=== PATIENT | male | born 1960 | race Caucasian/White ===

== ENCOUNTER 2016-05-20 15:18 | Emergency (ER) | payer OTHER ==
[~2016-05-20] VITALS: Ht 172.7 cm; Wt 71.8 kg
[~2016-05-20 15:18] MED LIST: FENTANYL; HYDRELX3; OXYCODONE; SOMA; TRAMADOL
[2016-05-20 16:07] LABS: Basophils # (auto) 0.1 uL; Basophils % (auto) 1.1 % (0.0-2.0); DEFINITIVE VIEW TRANSMISSION; Eosinophils # (auto) 0.3 uL; Eosinophils % (auto) 3.9 % (0.0-7.0); Hemoglobin 13.7 g/dL (13.5-17.5); Lymphocytes # (auto) 2.1 uL; Lymphocytes % (auto) 26.4 % (10.0-50.0); Mean Corpuscular Hemoglobin 32.7 pg (28.0-32.0); Mean Corpuscular Hgb Conc. 31.8 g/dL (32.0-36.0); Mean Corpuscular Volume 102.8 fL (80.0-100.0); Mean Platelet Volume 8.3 fL (7.4-10.4); Monocytes # (auto) 0.6 uL; Neutrophils % (auto) 61.6 % (37.0-80.0); Platelet Count (auto) 441 10^3/uL (140-450); Red Cell Distribution Width 14.4 % (11.6-16.0); White Blood Cell 8.1 10^3/uL (4.4-10.8)
[2016-05-20 16:37] LABS: Albumin 3.7 g/dL (3.4-5.0); BUN/Creatinine Ratio 8.3; Bilirubin, Total 0.4 mg/dL (0.2-1.0); Calcium 9.2 mg/dL (8.5-10.1); Potassium 3.9 mmol/L (3.5-5.1); Total Protein 7.2 g/dL (6.4-8.2)
[2016-05-20 16:57] VITALS: BP 126/82
[2016-05-20 17:52] LABS: INR 0.98 (0.9-1.15); Partial Thromboplastin Time 25.8 sec (22.64-33.71); Prothrombin Time 10.1 sec (9.37-12.3)
== END 2016-05-20 18:24 | disposition left against medical advice (07) ==
LOC: ER 15:34
DX: R51 Headache (principal); R20.0 Anesthesia of skin; H53.8 Other visual disturbances; Z53.21 Procedure and treatment not carried out due to patient leaving prior to being seen by health care provider
CPT/HCPCS: 36415; 70450; 80053; 82962; 83735; 84484; 85025; 85610; 85730; 93005; 94761

== ENCOUNTER 2016-07-03 21:45 | Emergency (ER) | payer OTHER ==
[~2016-07-03] VITALS: Ht 172.7 cm; Wt 68.0 kg
[2016-07-03] MEDS ORDERED: SODIUM CHLORIDE 0.9% 1,000 ML IV ONE (22:15)
[2016-07-03 22:38] LABS: DEFINITIVE VIEW TRANSMISSION; Hematocrit 34.1 % (41.0-53.0); Hemoglobin 11.2 g/dL (13.5-17.5); Mean Corpuscular Hemoglobin 33.3 pg (28.0-32.0); Mean Corpuscular Hgb Conc. 32.9 g/dL (32.0-36.0); Mean Corpuscular Volume 101.4 fL (80.0-100.0); Mean Platelet Volume 7.8 fL (7.4-10.4); Platelet Count (auto) 330 10^3/uL (140-450); Red Cell Distribution Width 15.3 % (11.6-16.0)
[2016-07-03 22:48] LABS: Blood Urea Nitrogen 13 mg/dL (7-18); Calcium 7.9 mg/dL (8.5-10.1); Chloride 109 mmol/L (98-107); Potassium 3.8 mmol/L (3.5-5.1); Sodium 139 mmol/L (136-145)
[2016-07-03 22:51] LABS: Acetaminophen 18.7 ug/mL (10-30); Salicylate 4.9 mg/dL (2.8-20.0)
[2016-07-03 22:52] LABS: Albumin 2.7 g/dL (3.4-5.0); Anion Gap 9 (5-15); Aspartate Aminotransferase 28 U/L (15-37); BUN/Creatinine Ratio 14.1; Carbon Dioxide 21 mmol/L (21-32); GFR African American 109 mL/min; GFR Non-African American 90 mL/min; Glucose 98 mg/dL (74-106); Magnesium 2.2 mg/dL (1.6-2.6)
[2016-07-03 22:56] LABS: Metamyelocytes % 0; Myelocytes % 0; Promyelocytes % 0; Reactive Lymphocytes 0
[2016-07-03 22:57] LABS: Alkaline Phosphatase 89 U/L (45-117); Bilirubin, Total 0.2 mg/dL (0.2-1.0); Total Protein 6.4 g/dL (6.4-8.2)
[2016-07-03 23:01] LABS: Platelet Estimate Adequate
[2016-07-03 23:07] LABS: Urine RBC None Seen /hpf (0 - 3)
[2016-07-03 23:30] LABS: Urine Bilirubin Negative (Negative); Urine Blood Negative /uL (Negative); Urine Color Yellow (Yellow); Urine Glucose Normal (Normal); Urine Ketone Negative (Negative); Urine Nitrite Negative (Negative); Urine Squamous Epithelial Cell FEW /hpf (<5); Urine Urobilinogen Normal (Negative); Urine pH 5.5 (5.0-8.0)
[2016-07-04 02:50] VITALS: BP 98/59
== END 2016-07-04 06:18 | disposition home or self-care (01) ==
LOC: EDBD 21:45 → ER 21:49
DX: T40.601A Poisoning by unspecified narcotics, accidental (unintentional), initial encounter (principal); F17.210 Nicotine dependence, cigarettes, uncomplicated; F10.120 Alcohol abuse with intoxication, uncomplicated; Y92.89 Other specified places as the place of occurrence of the external cause
CPT/HCPCS: 36415; 51702; 70450; 71010; 80053; 80320; 80329; 81001; 83735; 84484; 85007; 85027; 93005; 96360; 99285; G0434

== ENCOUNTER 2016-10-03 12:11 | Emergency (ER) | payer OTHER ==
[~2016-10-03] VITALS: Ht 172.7 cm; Wt 68.0 kg
[2016-10-03 16:35] VITALS: BP 125/105
== END 2016-10-03 16:58 | disposition home or self-care (01) ==
LOC: ER 12:11
DX: L02.01 Cutaneous abscess of face (principal); Z79.899 Other long term (current) drug therapy; B19.20 Unspecified viral hepatitis C without hepatic coma; E07.9 Disorder of thyroid, unspecified; F17.210 Nicotine dependence, cigarettes, uncomplicated; F11.10 Opioid abuse, uncomplicated

== ENCOUNTER 2016-11-22 12:55 | Inpatient (IN) | payer OTHER ==
[~2016-11-22] VITALS: Ht 172.7 cm; Wt 72.9 kg
[2016-11-22 13:45] LABS: Basophils # (auto) 0.1 uL; Basophils % (auto) 0.7 % (0.0-2.0); CONDITION Y; Eosinophils # (auto) 0.4 uL; Eosinophils % (auto) 4.3 % (0.0-7.0); Hematocrit 39.5 % (41.0-53.0); Hemoglobin 12.9 g/dL (13.5-17.5); Lymphocytes # (auto) 1.1 uL; Lymphocytes % (auto) 12.1 % (10.0-50.0); Mean Corpuscular Hgb Conc. 32.7 g/dL (32.0-36.0); Mean Corpuscular Volume 97.9 fL (80.0-100.0); Monocytes # (auto) 0.6 uL; Monocytes % (auto) 6.3 % (0.0-12.0); Neutrophils # (auto) 7.1 uL; Neutrophils % (auto) 76.6 % (37.0-80.0); Platelet Count (auto) 355 10^3/uL (140-450); Red Cell Distribution Width 17.1 % (11.6-16.0); White Blood Cell 9.3 10^3/uL (4.4-10.8)
[2016-11-22 14:24] LABS: Albumin 3.3 g/dL (3.4-5.0); BUN/Creatinine Ratio 9.2; Bilirubin, Total 0.3 mg/dL (0.2-1.0); Calcium 9.1 mg/dL (8.5-10.1); Potassium 4.1 mmol/L (3.5-5.1); Total Protein 6.7 g/dL (6.4-8.2)
[2016-11-22] MEDS ORDERED: SODIUM CHLORIDE 0.9% 1,000 ML IVB ONE (16:35)
[2016-11-22] MEDS ORDERED: ONDANSETRON HCL 4 MG/2 ML VIAL IV ONE (16:45)
[2016-11-22 17:19] LABS: Amylase 29 U/L (25-115); Magnesium 2.1 mg/dL (1.6-2.6)
[2016-11-22 17:31] LABS: INR 0.95 (0.9-1.15); Partial Thromboplastin Time 25.4 sec (22.64-33.71); Prothrombin Time 10.3 sec (9.37-12.3)
[2016-11-22] MEDS ORDERED: LORazepam 2MG/ML-1ML VIAL IV PRN (18:15)
[2016-11-22] MEDS ORDERED: cefTRIAXone 1GM/50ML D5W 50 ML IV ONE (18:15)
[2016-11-22] MEDS ORDERED: NITROGLYCERIN 0.4 MG SL TAB SL PRN (18:15)
[2016-11-22] MEDS ORDERED: MORPHINE SULF INJ 2 MG/ML SYRINGE 1ML IV PRN (18:15)
[2016-11-22] MEDS ORDERED: MORPHINE SULFATE 4 MG/ML SYRG IV PRN (18:15)
[2016-11-22] MEDS ORDERED: ALBUTEROL SULF 2.5 MG/0.5ML(0.5%) NEB SOLN NEB PRN (18:15)
[2016-11-22] MEDS ORDERED: DEXTROSE (50%) 50ML SYRG IV PRN (18:15)
[2016-11-22] MEDS ORDERED: MORPHINE SULF INJ 2 MG/ML SYRINGE 1ML IV ONE ×2 (18:15)
[2016-11-22] MEDS ORDERED: PROMETHAZINE HCL 25 MG/ML 1ML IV PRN (18:15)
[2016-11-22] MEDS ORDERED: QUET1TAB88 (18:33)
[2016-11-22] MEDS ORDERED: BENZ1TAB2 (18:33)
[2016-11-22] MEDS ORDERED: ALBU18 (18:33)
[2016-11-22] MEDS ORDERED: BUPR300T28 (18:33)
[2016-11-22] MEDS ORDERED: DICL50TA2 (18:33)
[2016-11-22] MEDS ORDERED: ASPI81TA10 (18:33)
[2016-11-22] MEDS ORDERED: LEVO200T45 (18:33)
[2016-11-22] MEDS ORDERED: OLAN20TA17 (18:33)
[2016-11-22] MEDS ORDERED: LITH300C3 (18:33)
[2016-11-22] MEDS: FAMOTIDINE (10MG/ML) 2ML VL IV SCH (19:03)
[2016-11-22] MEDS: SODIUM CHLORIDE 0.9% 1,000 ML IV SCH (19:03)
[2016-11-22 20:30] VITALS: BP 120/76
[2016-11-22] MEDS: metroNIDAZOLE 500MG/100ML 100 ML IV SCH (21:17)
[2016-11-22] MEDS: MORPHINE SULF INJ 2 MG/ML SYRINGE 1ML IV PRN (21:17)
[2016-11-22 22:17] VITALS: BP 120/76
[2016-11-22 22:18] VITALS: BP 126/85
[2016-11-23] MEDS ORDERED: ALBUTEROL SULF 2.5 MG/0.5ML(0.5%) NEB SOLN NEB SCH
[2016-11-23] MEDS ORDERED: IPRATROPIUM BROM 0.5 MG/2.5ML INH SOL NEB SCH
[2016-11-23] MEDS: ACCU-CHEK COMFORT CURVE STRIP VI SCH ×2 (00:18→05:10)
[2016-11-23] MEDS: MORPHINE SULF INJ 2 MG/ML SYRINGE 1ML IV PRN ×2 (01:43→06:04)
[2016-11-23] MEDS: SODIUM CHLORIDE 0.9% 1,000 ML IV SCH (04:08)
[2016-11-23] MEDS: metroNIDAZOLE 500MG/100ML 100 ML IV SCH (05:09)
[2016-11-23] MEDS: InsuLIN REG 1unit/0.01ml Soln (100units/ml) SC SCH ×2 (05:10)
[2016-11-23 05:22] VITALS: BP 131/85
[2016-11-23] MEDS ORDERED: TRAZ100T2 PO (05:24)
[2016-11-23] MEDS: FAMOTIDINE (10MG/ML) 2ML VL IV SCH (06:04)
[2016-11-23 06:56] LABS: Basophils # (auto) 0.1 uL; Basophils % (auto) 0.8 % (0.0-2.0); CONDITION Y; Eosinophils # (auto) 0.6 uL; Eosinophils % (auto) 7.8 % (0.0-7.0); Hematocrit 32.8 % (41.0-53.0); Hemoglobin 10.9 g/dL (13.5-17.5); Lymphocytes # (auto) 2.1 uL; Lymphocytes % (auto) 27.9 % (10.0-50.0); Mean Corpuscular Hemoglobin 32.1 pg (28.0-32.0); Mean Corpuscular Hgb Conc. 33.3 g/dL (32.0-36.0); Mean Corpuscular Volume 96.4 fL (80.0-100.0); Mean Platelet Volume 8.9 fL (7.4-10.4); Monocytes # (auto) 0.6 uL; Monocytes % (auto) 7.8 % (0.0-12.0); Neutrophils # (auto) 4.1 uL; Neutrophils % (auto) 55.7 % (37.0-80.0); Platelet Count (auto) 279 10^3/uL (140-450); Red Cell Distribution Width 16.4 % (11.6-16.0); White Blood Cell 7.4 10^3/uL (4.4-10.8)
[2016-11-23 07:07] LABS: Albumin 2.8 g/dL (3.4-5.0); BUN/Creatinine Ratio 11.9; Calcium 8.4 mg/dL (8.5-10.1); Potassium 4.2 mmol/L (3.5-5.1)
[2016-11-23 07:10] LABS: Bilirubin, Total 0.3 mg/dL (0.2-1.0); Total Protein 5.7 g/dL (6.4-8.2)
[2016-11-23 07:37] VITALS: BP 141/87
[2016-11-23] MEDS ORDERED: cefTRIAXone 1GM/50ML D5W 50 ML IV SCH (09:00)
== END 2016-11-23 07:45 | disposition left against medical advice (07) | DRG 389 ==
LOC: ER 12:55 → EDUNIT# 12:55 → TELE 12:56 → TELE-WESTW 20:30
PROVIDERS: ADMIT Internal Medicine; ATTEND Internal Medicine
DX: K56.60 Unspecified intestinal obstruction (principal); J44.1 Chronic obstructive pulmonary disease with (acute) exacerbation; E03.9 Hypothyroidism, unspecified; F20.9 Schizophrenia, unspecified; F17.210 Nicotine dependence, cigarettes, uncomplicated; F31.9 Bipolar disorder, unspecified; K76.9 Liver disease, unspecified; F41.9 Anxiety disorder, unspecified; Z82.49 Family history of ischemic heart disease and other diseases of the circulatory system; Z83.3 Family history of diabetes mellitus; Z79.82 Long term (current) use of aspirin
CPT/HCPCS: 36415; 71010; 74176; 80053; 82150; 82378; 82962; 83036; 83690; 83735; 84484; 85025; 85610; 85652; 85730; 93005; 94640; 94761; 96374; 96375; J0696; J2405; J3490

== ENCOUNTER 2017-02-11 15:50 | Emergency (ER) | payer OTHER ==
[~2017-02-11] VITALS: Ht 172.7 cm; Wt 71.7 kg
[~2017-02-11 15:50] MED LIST changes: +ALBU18; +ASPI81TA10; +BENZ1TAB2; +BUPR300T28; +DICL50TA2; -FENTANYL; -HYDRELX3; +LEVO200T45; +LITH300C3; +OLAN20TA17; -OXYCODONE; +QUET1TAB88; -SOMA; -TRAMADOL; +TRAZ100T2 PO
[2017-02-11 16:08] VITALS: BP 151/95
[2017-02-11 16:55] LABS: Basophils # (auto) 0.1 uL; Basophils % (auto) 1.7 % (0.0-2.0); Eosinophils # (auto) 0.4 uL; Eosinophils % (auto) 5.9 % (0.0-7.0); Hematocrit 34.4 % (41.0-53.0); Hemoglobin 11.2 g/dL (13.5-17.5); Lymphocytes # (auto) 1.5 uL; Mean Corpuscular Hemoglobin 31.2 pg (28.0-32.0); Mean Corpuscular Hgb Conc. 32.6 g/dL (32.0-36.0); Mean Corpuscular Volume 95.5 fL (80.0-100.0); Mean Platelet Volume 7.6 fL (6.9-10.8); Monocytes # (auto) 0.8 uL; Monocytes % (auto) 12.1 % (0.0-12.0); Neutrophils # (auto) 3.8 uL; Neutrophils % (auto) 57.3 % (37.0-80.0); Platelet Count (auto) 318 10^3/uL (140-450); Red Cell Distribution Width 16.7 % (11.8-14.3); White Blood Cell 6.7 10^3/uL (4.4-10.8)
[2017-02-11 17:17] LABS: Albumin 3.4 g/dL (3.4-5.0); Alkaline Phosphatase 91 U/L (45-117); Anion Gap 9 (5-15); Aspartate Aminotransferase 49 U/L (15-37); BUN/Creatinine Ratio 8.9; Bilirubin, Total 0.3 mg/dL (0.2-1.0); Blood Urea Nitrogen 8 mg/dL (7-18); Calcium 8.8 mg/dL (8.5-10.1); Carbon Dioxide 25 mmol/L (21-32); Chloride 102 mmol/L (98-107); GFR African American 112 mL/min; GFR Non-African American 93 mL/min; Glucose 89 mg/dL (74-106); Magnesium 2.1 mg/dL (1.6-2.6); Potassium 3.8 mmol/L (3.5-5.1); Sodium 136 mmol/L (136-145); Total Protein 7.3 g/dL (6.4-8.2)
== END 2017-02-11 18:46 | disposition left against medical advice (07) ==
LOC: ER 15:58
DX: M54.5 Low back pain (principal); M79.601 Pain in right arm; Z53.21 Procedure and treatment not carried out due to patient leaving prior to being seen by health care provider
CPT/HCPCS: 36415; 80053; 83735; 84484; 85025; 93005

== ENCOUNTER 2017-02-14 19:30 | Emergency (ER) | payer OTHER ==
[~2017-02-14] VITALS: Ht 172.7 cm; Wt 71.7 kg
[2017-02-14 20:30] LABS: Basophils # (auto) 0.1 uL; Basophils % (auto) 1.5 % (0.0-2.0); Eosinophils # (auto) 0.3 uL; Eosinophils % (auto) 5.5 % (0.0-7.0); Hematocrit 33.9 % (41.0-53.0); Hemoglobin 11.1 g/dL (13.5-17.5); Lymphocytes # (auto) 1.6 uL; Lymphocytes % (auto) 30.5 % (10.0-50.0); Mean Corpuscular Hemoglobin 30.9 pg (28.0-32.0); Mean Corpuscular Hgb Conc. 32.6 g/dL (32.0-36.0); Mean Corpuscular Volume 94.7 fL (80.0-100.0); Mean Platelet Volume 7.4 fL (6.9-10.8); Monocytes # (auto) 0.7 uL; Monocytes % (auto) 13.5 % (0.0-12.0); Neutrophils # (auto) 2.5 uL; Nucleated Red Blood Cells % 0.1 %; Platelet Count (auto) 297 10^3/uL (140-450); Red Cell Distribution Width 16.9 % (11.8-14.3); White Blood Cell 5.2 10^3/uL (4.4-10.8)
[2017-02-14 20:35] LABS: Urine RBC None Seen /hpf (0 - 3)
[2017-02-14 20:42] LABS: Urine Bilirubin Negative (Negative); Urine Blood Negative /uL (Negative); Urine Color Yellow (Yellow); Urine Glucose Normal (Normal); Urine Ketone Negative (Negative); Urine Nitrite Negative (Negative); Urine Urobilinogen Normal (Negative); Urine pH 6.5 (5.0-8.0)
[2017-02-14 20:50] LABS: INR 0.97 (0.9-1.15); Prothrombin Time 10.6 sec (9.37-12.3)
[2017-02-14 20:52] LABS: Albumin 3.1 g/dL (3.4-5.0); Alkaline Phosphatase 86 U/L (45-117); Anion Gap 6 (5-15); Aspartate Aminotransferase 77 U/L (15-37); BUN/Creatinine Ratio 8.5; Bilirubin, Total 0.2 mg/dL (0.2-1.0); Blood Urea Nitrogen 7 mg/dL (7-18); Calcium 8.5 mg/dL (8.5-10.1); Carbon Dioxide 27 mmol/L (21-32); Chloride 103 mmol/L (98-107); GFR African American 125 mL/min; GFR Non-African American 103 mL/min; Glucose 87 mg/dL (74-106); Potassium 4.1 mmol/L (3.5-5.1); Sodium 136 mmol/L (136-145); Total Protein 7.3 g/dL (6.4-8.2)
[2017-02-15] MEDS ORDERED: cefTRIAXone W LIDOCAINE 1 GM IM IM ONE
[2017-02-15] MEDS ORDERED: cefTRIAXone SOD 1,000 MG VL ONE (00:34)
[2017-02-15] MEDS ORDERED: LIDOCAINE 1% HCL (LOCAL ANESTH.) INJ 20ML MDV ONE (00:34)
[2017-02-15] MEDS ORDERED: KETOROLAC TROMETH 60MG/2ML VIAL IM ONE (01:00)
[2017-02-15 01:45] VITALS: BP 149/88
== END 2017-02-15 01:52 | disposition home or self-care (01) ==
LOC: ER 19:30
DX: L03.113 Cellulitis of right upper limb (principal); F10.129 Alcohol abuse with intoxication, unspecified; F17.210 Nicotine dependence, cigarettes, uncomplicated; R51 Headache; J44.9 Chronic obstructive pulmonary disease, unspecified; F20.9 Schizophrenia, unspecified; Z79.899 Other long term (current) drug therapy
CPT/HCPCS: 36415; 70450; 71010; 80053; 80307; 81001; 83735; 84484; 85025; 85610; 85730; 93005; 96372; 99285; J1885; J2001; J0696

== ENCOUNTER 2017-03-04 16:45 | Emergency (ER) | payer OTHER ==
[~2017-03-04] VITALS: Ht 172.7 cm; Wt 71.7 kg
[2017-03-04 18:48] VITALS: BP 139/85
[2017-03-04 20:07] LABS: Basophils # (auto) 0.1 uL; Basophils % (auto) 1.8 % (0.0-2.0); Eosinophils # (auto) 0.6 uL; Eosinophils % (auto) 10.9 % (0.0-7.0); Hematocrit 36.9 % (41.0-53.0); Hemoglobin 12.1 g/dL (13.5-17.5); Lymphocytes # (auto) 2.4 uL; Lymphocytes % (auto) 42.8 % (10.0-50.0); Mean Corpuscular Hemoglobin 29.9 pg (28.0-32.0); Mean Corpuscular Hgb Conc. 32.8 g/dL (32.0-36.0); Mean Corpuscular Volume 91.1 fL (80.0-100.0); Mean Platelet Volume 8.1 fL (6.9-10.8); Monocytes # (auto) 0.6 uL; Monocytes % (auto) 11.7 % (0.0-12.0); Neutrophils # (auto) 1.8 uL; Neutrophils % (auto) 32.8 % (37.0-80.0); Nucleated Red Blood Cells % 0.1 %; Platelet Count (auto) 373 10^3/uL (140-450); Red Cell Distribution Width 18.1 % (11.8-14.3); White Blood Cell 5.5 10^3/uL (4.4-10.8)
[2017-03-04 20:30] LABS: Albumin 3.9 g/dL (3.4-5.0); BUN/Creatinine Ratio 7.4; Bilirubin, Total 0.5 mg/dL (0.2-1.0); Calcium 9.2 mg/dL (8.5-10.1); Potassium 3.4 mmol/L (3.5-5.1); Total Protein 7.7 g/dL (6.4-8.2)
== END 2017-03-05 03:00 | disposition left against medical advice (07) ==
LOC: ER 16:45
DX: R11.2 Nausea with vomiting, unspecified (principal); Z53.21 Procedure and treatment not carried out due to patient leaving prior to being seen by health care provider
CPT/HCPCS: 36415; 80053; 85025; 93005

== ENCOUNTER 2017-07-09 17:06 | Emergency (ER) | payer OTHER ==
[~2017-07-09] VITALS: Ht 172.7 cm; Wt 70.3 kg
[2017-07-09 17:38] VITALS: BP 150/88
[2017-07-09] MEDS ORDERED: KETOROLAC TROMETH 30 MG/ML 1ML VIAL IM ONE (20:15)
== END 2017-07-09 21:38 | disposition home or self-care (01) ==
LOC: ER 17:06
DX: M79.671 Pain in right foot (principal); J44.9 Chronic obstructive pulmonary disease, unspecified; F17.210 Nicotine dependence, cigarettes, uncomplicated; Z79.899 Other long term (current) drug therapy; Z59.0 Homelessness
CPT/HCPCS: 73630; 96372; 99284; J1885

== ENCOUNTER 2017-08-23 12:47 | Emergency (ER) | payer OTHER ==
[~2017-08-23] VITALS: Ht 172.7 cm; Wt 72.6 kg
[2017-08-23 13:08] VITALS: BP 134/84
[2017-08-23] MEDS ORDERED: ASPirin 81 mg TAB PO ONE (13:15)
[2017-08-23 13:58] LABS: Basophils # (auto) 0.1 uL; Basophils % (auto) 2.2 % (0.0-2.0); Eosinophils # (auto) 0.3 uL; Eosinophils % (auto) 4.8 % (0.0-7.0); Hematocrit 39.6 % (41.0-53.0); Lymphocytes # (auto) 2.4 uL; Lymphocytes % (auto) 39.5 % (10.0-50.0); Mean Corpuscular Hgb Conc. 32.8 g/dL (32.0-36.0); Mean Corpuscular Volume 91.4 fL (80.0-100.0); Monocytes # (auto) 0.5 uL; Monocytes % (auto) 7.5 % (0.0-12.0); Neutrophils # (auto) 2.8 uL; Nucleated Red Blood Cells % 0.2 %; Platelet Count (auto) 301 10^3/uL (140-450); Red Blood Cells 4.34 10^6/uL (4.5-5.90); Red Cell Distribution Width 16.3 % (11.8-14.3); White Blood Cell 6.1 10^3/uL (4.4-10.8)
[2017-08-23 14:14] LABS: Alanine Aminotransferase 42 U/L (16-61); Albumin 3.9 g/dL (3.4-5.0); Alkaline Phosphatase 108 U/L (45-117); Anion Gap 4 (5-15); Aspartate Aminotransferase 40 U/L (15-37); BUN/Creatinine Ratio 9.3; Bilirubin, Total 0.3 mg/dL (0.2-1.0); Blood Urea Nitrogen 10 mg/dL (7-18); Calcium 9.3 mg/dL (8.5-10.1); Carbon Dioxide 29 mmol/L (21-32); Chloride 103 mmol/L (98-107); GFR African American 91 mL/min; GFR Non-African American 75 mL/min; Glucose 99 mg/dL (74-106); Magnesium 2.2 mg/dL (1.6-2.6); Potassium 4.2 mmol/L (3.5-5.1); Sodium 136 mmol/L (136-145); Total Protein 7.7 g/dL (6.4-8.2)
[2017-08-23] MEDS ORDERED: HYDROcodone-ACET 10/325MG TAB PO ONE (16:00)
== END 2017-08-23 16:28 | disposition home or self-care (01) ==
LOC: ER 12:51
DX: R07.89 Other chest pain (principal); J44.9 Chronic obstructive pulmonary disease, unspecified; E07.89 Other specified disorders of thyroid; G89.29 Other chronic pain; M54.9 Dorsalgia, unspecified; F17.210 Nicotine dependence, cigarettes, uncomplicated; Z90.89 Acquired absence of other organs
CPT/HCPCS: 36415; 71046; 80053; 83735; 84484; 85025; 93005

== ENCOUNTER 2018-02-06 17:28 | Emergency (ER) | payer OTHER ==
[~2018-02-06] VITALS: Ht 172.7 cm; Wt 64.0 kg
[~2018-02-06 17:28] MED LIST changes: -LEVO200T45; +LEVO200T7
[2018-02-06 17:41] VITALS: BP 97/62
== END 2018-02-07 01:14 | disposition left against medical advice (07) ==
LOC: ER 17:30
DX: M25.562 Pain in left knee (principal); Z53.21 Procedure and treatment not carried out due to patient leaving prior to being seen by health care provider
CPT/HCPCS: 73562

== ENCOUNTER 2018-07-09 08:28 | Emergency (ER) | payer OTHER ==
[~2018-07-09] VITALS: Ht 172.7 cm; Wt 65.8 kg
[2018-07-09 09:02] VITALS: BP 111/69
[2018-07-09 09:27] LABS: Basophils # (auto) 0.1 uL; Lymphocytes # (auto) 1.7 uL; Monocytes # (auto) 0.4 uL; Nucleated Red Blood Cells % 0.1 %
[2018-07-09 09:29] LABS: Basophils % (auto) 1.2 % (0.0-2.0); Eosinophils # (auto) 0 uL; Eosinophils % (auto) 0.5 % (0.0-7.0); Hematocrit 40.7 % (41.0-53.0); Lymphocytes % (auto) 28.4 % (10.0-50.0); Mean Corpuscular Hemoglobin 34.4 pg (28.0-32.0); Mean Corpuscular Hgb Conc. 34.5 g/dL (32.0-36.0); Mean Corpuscular Volume 99.7 fL (80.0-100.0); Monocytes % (auto) 7.5 % (0.0-12.0); Neutrophils # (auto) 3.7 uL; Neutrophils % (auto) 62.4 % (37.0-80.0); Platelet Count (auto) 275 10^3/uL (140-450); Red Blood Cells 4.08 10^6/uL (4.5-5.90); Red Cell Distribution Width 12.6 % (11.8-14.3); White Blood Cell 5.9 10^3/uL (4.4-10.8)
[2018-07-09 09:59] LABS: Anion Gap 6 (5-15); Blood Urea Nitrogen 18 mg/dL (7-18); Carbon Dioxide 27 mmol/L (21-32); Chloride 101 mmol/L (98-107); Glucose 103 mg/dL (74-106); Potassium 3.8 mmol/L (3.5-5.1); Sodium 134 mmol/L (136-145)
[2018-07-09 10:00] LABS: Alanine Aminotransferase 37 U/L (16-61); Alkaline Phosphatase 115 U/L (45-117); Aspartate Aminotransferase 27 U/L (15-37); BUN/Creatinine Ratio 20.2; Bilirubin, Total 0.9 mg/dL (0.2-1.0); Calcium 8.7 mg/dL (8.5-10.1); GFR African American 113 mL/min; GFR Non-African American 93 mL/min
[2018-07-09 10:01] LABS: Albumin 3.7 g/dL (3.4-5.0); Magnesium 2.1 mg/dL (1.6-2.6)
[2018-07-09 10:19] LABS: Urine Bacteria NONE SEEN /hpf (None Seen); Urine Blood Negative /uL (Negative); Urine Specific Gravity 1.016 (1.001-1.035); Urine WBC <1 /hpf (0 - 3)
== END 2018-07-09 12:57 | disposition left against medical advice (07) ==
LOC: ER 08:28
DX: R42 Dizziness and giddiness (principal); J44.9 Chronic obstructive pulmonary disease, unspecified; F20.9 Schizophrenia, unspecified; F17.210 Nicotine dependence, cigarettes, uncomplicated
CPT/HCPCS: 36415; 71046; 80053; 81001; 83735; 84484; 85025; 93005

== ENCOUNTER 2018-07-12 23:32 | Emergency (ER) | payer OTHER ==
[~2018-07-12] VITALS: Ht 167.6 cm; Wt 65.8 kg
[2018-07-12 23:40] VITALS: BP 120/76
== END 2018-07-13 00:45 | disposition left against medical advice (07) ==
LOC: EDBD 23:32 → ER 23:36
DX: R53.1 Weakness (principal); Z53.21 Procedure and treatment not carried out due to patient leaving prior to being seen by health care provider
CPT/HCPCS: 93005

== ENCOUNTER 2018-09-29 11:33 | Emergency (ER) | payer OTHER ==
[~2018-09-29] VITALS: Ht 172.7 cm; Wt 65.8 kg
[2018-09-29 13:18] LABS: Urine Bacteria NONE SEEN /hpf (None Seen); Urine Blood Negative /uL (Negative); Urine Specific Gravity 1.011 (1.001-1.035); Urine WBC 2 /hpf (0 - 3)
[2018-09-29] MEDS ORDERED: ASPirin 81 mg TAB PO ONE (13:30)
[2018-09-29 13:32] LABS: Amphetamine Screen, Urine NEGATIVE (NEGATIVE); Barbiturate Scree,Urine NEGATIVE (NEGATIVE); Benzodiazephine Screen, Urine NEGATIVE (NEGATIVE); Cannabinoid Screen, Urine POSITIVE (NEGATIVE); Cocaine Screen, Urine NEGATIVE (NEGATIVE); Opiate Scree,Urine NEGATIVE (NEGATIVE); Phencyclidine Screen, Urine NEGATIVE (NEGATIVE)
[2018-09-29 14:00] LABS: Basophils # (auto) 0.1 uL; Basophils % (auto) 1.3 % (0.0-2.0); Eosinophils # (auto) 0.1 uL; Eosinophils % (auto) 1.3 % (0.0-7.0); Monocytes # (auto) 0.4 uL; Nucleated Red Blood Cells % 0.1 %; Red Blood Cells 3.62 10^6/uL (4.5-5.90); White Blood Cell 5.1 10^3/uL (4.4-10.8)
[2018-09-29 14:02] LABS: Lymphocytes # (auto) 1.2 uL; Lymphocytes % (auto) 23.6 % (10.0-50.0); Mean Corpuscular Hgb Conc. 34.3 g/dL (32.0-36.0); Monocytes % (auto) 8.8 % (0.0-12.0); Neutrophils # (auto) 3.3 uL; Platelet Count (auto) 261 10^3/uL (140-450); Red Cell Distribution Width 14.4 % (11.8-14.3)
[2018-09-29 14:16] LABS: Albumin 3.4 g/dL (3.4-5.0); Anion Gap 10 (5-15); Blood Urea Nitrogen 15 mg/dL (7-18); Calcium 8.6 mg/dL (8.5-10.1); Carbon Dioxide 24 mmol/L (21-32); Chloride 106 mmol/L (98-107); Glucose 106 mg/dL (74-106); Magnesium 2.3 mg/dL (1.6-2.6); Potassium 3.6 mmol/L (3.5-5.1); Sodium 140 mmol/L (136-145)
[2018-09-29 14:22] LABS: Alanine Aminotransferase 74 U/L (16-61); Alkaline Phosphatase 115 U/L (45-117); Aspartate Aminotransferase 76 U/L (15-37); BUN/Creatinine Ratio 13.8; Bilirubin, Total 0.4 mg/dL (0.2-1.0); GFR African American 89 mL/min; GFR Non-African American 74 mL/min; Total Protein 6.7 g/dL (6.4-8.2)
[2018-09-29] MEDS ORDERED: ACETAMINOPHEN 325 MG TAB PO ONE (16:00)
[2018-09-29 16:14] VITALS: BP 118/65
== END 2018-09-29 17:24 | disposition home or self-care (01) ==
LOC: ER 11:34
DX: M54.5 Low back pain (principal); G89.29 Other chronic pain; R79.89 Other specified abnormal findings of blood chemistry; F12.20 Cannabis dependence, uncomplicated; F17.210 Nicotine dependence, cigarettes, uncomplicated; Z79.82 Long term (current) use of aspirin; Z79.899 Other long term (current) drug therapy
CPT/HCPCS: 36415; 71045; 80053; 80307; 81001; 83735; 84484; 85025; 93005; 94761

== ENCOUNTER 2018-09-29 19:50 | Emergency (ER) | payer OTHER ==
[~2018-09-29] VITALS: Ht 172.7 cm; Wt 65.8 kg
[2018-09-30] MEDS ORDERED: KETOROLAC TROMETH 30 MG/ML 1ML VIAL IM ONE (07:15)
[2018-09-30 07:35] VITALS: BP 137/79
== END 2018-09-30 08:29 | disposition home or self-care (01) ==
LOC: ER 19:51
DX: S22.32XD Fracture of one rib, left side, subsequent encounter for fracture with routine healing (principal); S20.35 Superficial foreign body of front wall of thorax; I10 Essential (primary) hypertension; F17.210 Nicotine dependence, cigarettes, uncomplicated; F12.90 Cannabis use, unspecified, uncomplicated; F15.90 Other stimulant use, unspecified, uncomplicated; Z79.899 Other long term (current) drug therapy; Z79.82 Long term (current) use of aspirin; X58.XXXD Exposure to other specified factors, subsequent encounter
CPT/HCPCS: 71046; 71101; 96372; 99283; J1885

== ENCOUNTER 2019-04-14 01:57 | Emergency (ER) | payer OTHER ==
[~2019-04-14] VITALS: Ht 172.7 cm; Wt 68.0 kg
[~2019-04-14 01:57] MED LIST changes: +CHOL100039 PO; +GABA-339 PO; -OLAN20TA17; +OLAN20TA30; -TRAZ100T2 PO; +TRAZ100T3 PO; +VARE0.5T PO
[2019-04-14 03:20] VITALS: BP 115/78
== END 2019-04-14 04:39 | disposition home or self-care (01) ==
LOC: ER 01:59
DX: S16.1XXA Strain of muscle, fascia and tendon at neck level, initial encounter (principal); S46.811A Strain of other muscles, fascia and tendons at shoulder and upper arm level, right arm, initial encounter; S46.812A Strain of other muscles, fascia and tendons at shoulder and upper arm level, left arm, initial encounter; I10 Essential (primary) hypertension; F17.210 Nicotine dependence, cigarettes, uncomplicated; Z79.899 Other long term (current) drug therapy; Z59.0 Homelessness; Y04.2XXA Assault by strike against or bumped into by another person, initial encounter; Y93.89 Activity, other specified; Y92.148 Other place in prison as the place of occurrence of the external cause; Y99.8 Other external cause status
CPT/HCPCS: 72040

== ENCOUNTER 2020-11-24 14:02 | Emergency (ER) | payer OTHER ==
[~2020-11-24] VITALS: Ht 177.8 cm; Wt 72.6 kg
[2020-11-24 14:16] VITALS: BP 118/73
== END 2020-11-24 20:06 | disposition left against medical advice (07) ==
LOC: EDBD 14:02 → ER 14:02
DX: M25.512 Pain in left shoulder (principal); R51.9 Headache, unspecified; Z53.21 Procedure and treatment not carried out due to patient leaving prior to being seen by health care provider
CPT/HCPCS: 70450; 70486; 73030